=== PATIENT | male | born 1960 | race Caucasian/White ===

== ENCOUNTER 2024-04-25 18:54 | Emergency (ER) | payer BC ==
[2024-04-25] MEDS ORDERED: DIPHTH,PERTUSS(ACELL),TET 0.5 ML DISP.SYRIN IM ONE (19:54)
[2024-04-25] MEDS ORDERED: DOXYCYCLINE HYCLATE 100 MG CAPSULE PO ONE (19:54)
[2024-04-25] MEDS: DOXYCYCLINE HYCLATE 100 MG CAPSULE PO ONE (20:00)
[2024-04-25] MEDS: DIPHTH,PERTUSS(ACELL),TET 0.5 ML DISP.SYRIN IM ONE (20:00)
[2024-04-25 20:04] VITALS: BP 170/75; PULSE 86; RESP 16; TEMP 98.2; BMI 33.2
== END 2024-04-25 20:07 | disposition home or self-care (01) ==
LOC: FER 18:54
PROC: 0YQHXZZ Repair Right Lower Leg, External Approach (ICD-10-PCS; principal; 2024-04-25)
PROC: 3E0234Z Introduction of Serum, Toxoid and Vaccine into Muscle, Percutaneous Approach (ICD-10-PCS; 2024-04-25)
DX: S81.811A Laceration without foreign body, right lower leg, initial encounter (principal); W26.8XXA Contact with other sharp object(s), not elsewhere classified, initial encounter; Z23 Encounter for immunization
CPT/HCPCS: 90715; 99284-25

== ENCOUNTER 2024-05-02 18:24 | Emergency (ER) | payer BC ==
[2024-05-02 18:35] VITALS: BP 152/78; PULSE 85; RESP 18; TEMP 97.8; BMI 33.2
== END 2024-05-02 19:28 | disposition home or self-care (01) ==
LOC: FER 18:24
DX: M79.661 Pain in right lower leg (principal); Z48.02 Encounter for removal of sutures
CPT/HCPCS: 73590-TC-RT-FY; 99283-25